=== PATIENT | male | born 2000 | race Hispanic/Latino ===

== ENCOUNTER 2019-05-06 14:03 | Emergency (ER) | payer BC, MEDICAID, OTHER ==
[2019-05-06] MEDS ORDERED: HYDROCODONE/ACETAMINOPHEN 5/325 MG TAB ONE (14:50)
== END 2019-05-06 17:25 | disposition home or self-care (01) ==
LOC: EDH 14:03
DX: S63.502A Unspecified sprain of left wrist, initial encounter (principal); W18.39XA Other fall on same level, initial encounter; Y93.89 Activity, other specified; Y92.89 Other specified places as the place of occurrence of the external cause; Y99.8 Other external cause status; S63.501A Unspecified sprain of right wrist, initial encounter; S23.3XXA Sprain of ligaments of thoracic spine, initial encounter
CPT/HCPCS: 72128; 72131; 73110

== ENCOUNTER 2019-08-22 20:18 | Inpatient (IN) | payer BC, OTHER, SELFPAY ==
[~2019-08-22] VITALS: Ht 167.6 cm; Wt 92.5 kg
[2019-08-22] MEDS ORDERED: IBUPROFEN 800 MG TAB ONE (21:29)
[2019-08-22 21:33] LABS: RAPID GROUP A STREP NEGATIVE (NEGATIVE)
[2019-08-22 21:41] LABS: BASOPHILS % (AUTO) 0.2 % (0.0-5.0); HEMATOCRIT 45.8 % (42-54); LYMPHOCYTES % (AUTO) 20.1 % (21.0-51.0); MEAN CORPUSCULAR HEMOGLOBIN 33.3 pg (27.0-33.0); MEAN CORPUSCULAR VOLUME 92.3 fL (80-100); MONOCYTES % (AUTO) 6.4 % (3.0-13.0); NEUTROPHILS % (AUTO) 73.1 % (40.0-77.0); PLATELET COUNT (AUTO) 173 K/uL (130-400); RED BLOOD CELL COUNT(AUTO) 4.96 MIL/uL (4.50-6.20); RED CELL DISTRIBUTION WIDTH 11.7 % (11.0-15.5); WHITE BLOOD COUNT (AUTO) 5.5 K/uL (4.8-10.8)
[2019-08-22 22:09] LABS: POTASSIUM 3.8 mmol/L (3.5-5.1)
[2019-08-22 22:10] LABS: INR 0.95 (0.85-1.15); PARTIAL THROMBOPLASTIN TIME 30.8 SEC (26.3-35.5); PROTHROMBIN TIME 10.3 SEC (9.6-11.6)
[2019-08-22 22:19] LABS: ALBUMIN 4.1 g/dL (3.5-5.0); TOTAL PROTEIN, SERUM 7.5 g/dL (6.0-8.3); TROPONIN I 0.22 ng/mL (0.00-0.06)
[2019-08-22 22:21] LABS: CREATININE 1.2 mg/dL (0.5-1.5)
[2019-08-22 23:01] LABS: APPEARANCE,URINE Clear (CLEAR); BILIRUBIN,URINE Negative (NEGATIVE); COLOR,URINE Yellow (YELLOW); GLUCOSE, URINE (UA) Negative (NEGATIVE); KETONES,URINE Trace mg/dL (NEGATIVE); LEUKOCYTE ESTERASE ,URINE Negative (NEGATIVE); NITRATE,URINE Negative (NEGATIVE); OCCULT BLOOD,URINE Negative (NEGATIVE); PH,URINE 7.5 (5.0-8.0); PROTEIN,URINE POS 1+ mg/dL (NEGATIVE)
[2019-08-22 23:35] LABS: BACTERIA,URINE None Seen /HPF (None Seen); MUCUS,URINE Few LPF (None Seen); RBC,URINE None Seen /HPF (0-1); SQUAMOUS EPITHELIAL CELL,UR Rare /HPF (0-2); WBC,URINE None Seen /HPF (0-1)
[2019-08-23] MEDS ORDERED: CEFTRIAXONE SODIUM 1 GM ONE (00:06)
[2019-08-23] MEDS ORDERED: AZITHROMYCIN 500MG+NS 250ML 250 ML IV ONE (00:07)
[2019-08-23] MEDS ORDERED: ASPIRIN 325MG EC TAB 325 MG TABLET.DR PO STA (00:50)
[2019-08-23] MEDS ORDERED: ONDANSETRON HCL 4 MG/2 ML VIAL IV PRN (01:00)
[2019-08-23] MEDS: AZITHROMYCIN 500MG+NS 250ML 250 ML IV SCH (01:00)
[2019-08-23] MEDS ORDERED: ACETAMINOPHEN 325 MG TAB PO PRN (01:00)
[2019-08-23] MEDS: CEFTRIAXONE SODIUM 1 GM IV SCH (01:00)
[2019-08-23] MEDS ORDERED: LACTULOSE 20 GM/30 ML UDCUP PO PRN (01:00)
--- NOTE | 2019-08-23 02:15 | NUR ---
PT ARRIVED FROM ER. NO DISTRESS NOTED. RULE OUT FOR COVID. ADMITTED DUE TO COMMUNITY ACQUIRED PNEUMONIA. PT STATES HE HAS HAVING FEVERS FOR THREE DAYS. OTHERWISE NO COUGH, CONGESTION, SOB. ON ROOM AIR. AMBULATORY. AAO3, PERRLA.
[2019-08-23] MEDS: SODIUM CHLORIDE 0.9% 1000ML 1,000 ML IV SCH ×3 (02:40→17:18)
[2019-08-23 02:53] LABS: AMPHET/METH SCREEN,URINE NEGATIVE (NEGATIVE); BARBITURATE SCREEN, URINE NEGATIVE (NEGATIVE); BENZODIAZEPINES SCREEN,URINE NEGATIVE (NEGATIVE); CANNABINOID SCREEN,URINE NEGATIVE (NEGATIVE); COCAINE SCREEN,URINE NEGATIVE (NEGATIVE); OPIATE SCREEN,URINE NEGATIVE (NEGATIVE); PHENCYCLIDINE SCREEN,URINE NEGATIVE (NEGATIVE)
--- NOTE | 2019-08-23 03:10 | NUR ---
PT D-DIMER ELEVATED. REPORTED TO ADAM BAXTER. ORDER TO PE CT PROTOCOL.
[2019-08-23 04:00] VITALS: BP 138/93
[2019-08-23] MEDS ORDERED: IOHEXOL 350 MG/ML 100ML INFUS..BTL IV ONE (04:05)
--- NOTE | 2019-08-23 04:30 | NUR ---
PT TAKEN FOR CT TO RULE OUT PE
[2019-08-23] MEDS: ACETAMINOPHEN 325 MG TAB PO PRN ×2 (04:48→17:18)
--- NOTE | 2019-08-23 05:15 | NUR ---
PT IS COVID-19 NEGATIVE. PER LAB REPORT. PT AWARE. NO DISTRESS NOTED
[2019-08-23 05:22] LABS: BASOPHILS % (AUTO) 0.2 % (0.0-5.0); HEMATOCRIT 41.3 % (42-54); LYMPHOCYTES % (AUTO) 18.6 % (21.0-51.0); MEAN CORPUSCULAR HEMOGLOBIN 32.9 pg (27.0-33.0); MEAN CORPUSCULAR HGB CONC 35.4 g/dL (32.0-36.0); MONOCYTES % (AUTO) 6.5 % (3.0-13.0); NEUTROPHILS % (AUTO) 74.3 % (40.0-77.0); PLATELET COUNT (AUTO) 136 K/uL (130-400); RED BLOOD CELL COUNT(AUTO) 4.44 MIL/uL (4.50-6.20); RED CELL DISTRIBUTION WIDTH 11.7 % (11.0-15.5); WHITE BLOOD COUNT (AUTO) 5.1 K/uL (4.8-10.8)
[2019-08-23 05:37] LABS: CREATININE 1.1 mg/dL (0.5-1.5); POTASSIUM 3.5 mmol/L (3.5-5.1)
[2019-08-23 08:53] VITALS: BP 121/77
[2019-08-23] MEDS: METOPROLOL TARTRATE 25 MG TAB PO SCH ×2 (09:05→21:41)
[2019-08-23] MEDS: ENOXAPARIN SODIUM 40 MG/0.4 ML SYRINGE SQ SCH (09:06)
[2019-08-23] MEDS: ASPIRIN 81MG TAB.CHEW PO SCH (09:06)
[2019-08-23] MEDS: FAMOTIDINE 20MG TAB 20 MG TAB PO SCH ×2 (09:06→21:41)
[2019-08-23 09:47] LABS: TROPONIN I 0.15 ng/mL (0.00-0.06)
[2019-08-23 12:51] VITALS: BP 130/91
[2019-08-23 16:07] VITALS: BP 125/80
--- NOTE | 2019-08-23 16:48 | NUR ---
BRAYDEN PLAN PATIENT IN COVID UNIT PENDING TRANSFER TO OTHER FLOOR. [facility] WILL CONTINUE TO FOLLOW. Addendum: 08/23/19 at 1649 by MARY TREVINO RN CM Amended: Links added.
[2019-08-23 21:30] VITALS: BP 127/91
[2019-08-24] VITALS (7 sets, daily range): BP systolic 111–131; BP diastolic 62–91
[2019-08-24] MEDS: AZITHROMYCIN 500MG+NS 250ML 250 ML IV SCH (00:58)
[2019-08-24] MEDS: CEFTRIAXONE SODIUM 1 GM IV SCH (00:58)
[2019-08-24] MEDS: SODIUM CHLORIDE 0.9% 1000ML 1,000 ML IV SCH ×2 (04:00→17:35)
[2019-08-24 04:32] LABS: BASOPHILS % (AUTO) 0.4 % (0.0-5.0); EOSINOPHILS % (AUTO) 0.2 % (0.0-8.0); HEMATOCRIT 40.9 % (42-54); LYMPHOCYTES % (AUTO) 31.9 % (21.0-51.0); MEAN CORPUSCULAR HEMOGLOBIN 32.7 pg (27.0-33.0); MEAN CORPUSCULAR HGB CONC 35.2 g/dL (32.0-36.0); MONOCYTES % (AUTO) 5.7 % (3.0-13.0); NEUTROPHILS % (AUTO) 61.6 % (40.0-77.0); PLATELET COUNT (AUTO) 145 K/uL (130-400); RED CELL DISTRIBUTION WIDTH 11.7 % (11.0-15.5); WHITE BLOOD COUNT (AUTO) 5.1 K/uL (4.8-10.8)
[2019-08-24 05:29] LABS: ALBUMIN 3.1 g/dL (3.5-5.0); BILIRUBIN,TOTAL 0.9 mg/dL (0.2-1.0); CREATININE 1.2 mg/dL (0.5-1.5); CRP QUANTITATIVE 150.2 mg/L (0.00-9.0); MAGNESIUM 2.3 mg/dL (1.80-2.40); PHOSPHORUS 3.4 mg/dL (2.5-4.9); POTASSIUM 3.2 mmol/L (3.5-5.1); THYROID STIMULATING HORMONE 1.13 uIU/mL (0.36-3.74); TOTAL PROTEIN, SERUM 6.8 g/dL (6.0-8.3)
[2019-08-24 06:01] LABS: ERYTHROCYTE SEDIMENTATION RATE 30 MM/HR (0-15)
[2019-08-24] MEDS ORDERED: POTASSIUM CHLORIDE 10% ELIXIR 20 MEQ/15 ML UDCUP PO PRN (08:00)
[2019-08-24] MEDS ORDERED: POTASSIUM CHLORIDE 20MEQ/100ML 100 ML IV PRN ×2 (08:00)
[2019-08-24] MEDS: FAMOTIDINE 20MG TAB 20 MG TAB PO SCH ×2 (09:25→20:27)
[2019-08-24] MEDS: ASPIRIN 81MG TAB.CHEW PO SCH (09:26)
[2019-08-24] MEDS: ENOXAPARIN SODIUM 40 MG/0.4 ML SYRINGE SQ SCH (09:26)
[2019-08-24] MEDS: METOPROLOL TARTRATE 25 MG TAB PO SCH ×2 (09:27→20:28)
[2019-08-24] MEDS ORDERED: DOXYCYCLINE 100MG+NS 250ML 250 ML IV SCH (11:45)
[2019-08-24] MEDS: DOXYCYCLINE HYCLATE 100 MG TABLET PO SCH ×2 (15:13→20:28)
--- NOTE | 2019-08-24 17:28 | NUR ---
MET W PATIENT FOR DC PLANNING. LIVES W PARENTS, INDEPENDENT, NO DME NO SERVICES- STUDENT, NO CHILDHOOD ASTHMA OR ALLERGIES, PT HAS BREATHING DIFFICULTIES LATELY, STATES HAS BEEN OUTSIDE A LOT. DCP IS HOME, Addendum: 08/24/19 at 1731 by DARIUS THACKER RN CM Amended: Links added.
[2019-08-24] MEDS: POTASSIUM CHLORIDE 20 MEQ ERTAB PO PRN ×3 (18:19→22:05)
[2019-08-25] MEDS: CEFTRIAXONE SODIUM 1 GM IV SCH (00:17)
[2019-08-25] MEDS: POTASSIUM CHLORIDE 20 MEQ ERTAB PO PRN (00:18)
[2019-08-25] MEDS ORDERED: ACETAMINOPHEN 325 MG TAB ONE (00:25)
[2019-08-25] MEDS: ACETAMINOPHEN 325 MG TAB PO PRN (00:28)
[2019-08-25 03:46] VITALS: BP 107/75
[2019-08-25] MEDS: SODIUM CHLORIDE 0.9% 1000ML 1,000 ML IV SCH ×2 (05:20→14:15)
[2019-08-25 05:33] LABS: HEMATOCRIT 38.1 % (42-54); MEAN CORPUSCULAR HEMOGLOBIN 33.3 pg (27.0-33.0); MEAN CORPUSCULAR HGB CONC 35.7 g/dL (32.0-36.0); MEAN CORPUSCULAR VOLUME 93.2 fL (80-100); PLATELET COUNT (AUTO) 167 K/uL (130-400); RED BLOOD CELL COUNT(AUTO) 4.09 MIL/uL (4.50-6.20); RED CELL DISTRIBUTION WIDTH 11.7 % (11.0-15.5); WHITE BLOOD COUNT (AUTO) 5.9 K/uL (4.8-10.8)
[2019-08-25 05:43] LABS: ALBUMIN 2.9 g/dL (3.5-5.0); BILIRUBIN,TOTAL 0.6 mg/dL (0.2-1.0); CREATININE 1.2 mg/dL (0.5-1.5); CRP QUANTITATIVE 104.2 mg/L (0.00-9.0); POTASSIUM 4.5 mmol/L (3.5-5.1); TOTAL PROTEIN, SERUM 6.4 g/dL (6.0-8.3)
[2019-08-25 06:04] LABS: BAND NEUTROPHILS % (MANUAL) 13 % (0-2); BASOPHILS % (MANUAL) 1 % (0-2); LYMPHOCYTES % (MANUAL) 43 % (22-44); MAN.DIFF COMMENT-IMPRESSION MANUAL DIFFERENTIAL; MONOCYTES % (MANUAL) 11 % (2-9); PLATELET MORPHOLOGY COMMENT ADEQUATE; REACTIVE LYMPHOCYTES 2 % (0-0); SEGMENTED NEUTROPHILS % 30 % (40-70)
[2019-08-25 07:54] VITALS: BP 122/79
[2019-08-25] MEDS: FAMOTIDINE 20MG TAB 20 MG TAB PO SCH (08:56)
[2019-08-25] MEDS: ENOXAPARIN SODIUM 40 MG/0.4 ML SYRINGE SQ SCH (08:56)
[2019-08-25] MEDS: ASPIRIN 81MG TAB.CHEW PO SCH (08:56)
[2019-08-25] MEDS: DOXYCYCLINE HYCLATE 100 MG TABLET PO SCH (08:56)
[2019-08-25] MEDS: METOPROLOL TARTRATE 25 MG TAB PO SCH (08:56)
[2019-08-25 11:51] VITALS: BP 111/79
[2019-08-25] MEDS ORDERED: CEFD300C3 PO (12:32)
[2019-08-25] MEDS ORDERED: DOXY100T21 PO (12:32)
--- NOTE | 2019-08-25 14:45 | NUR ---
PT LEFT IN PVT CAR WITH FATHER. PT A/A X 3 WITH NO COMPLICATIONS AND V/S STABLE. RX SCRIPT GIVEN TO PATIENT ALONG WITH D/C INSTRUCTION AND IS TO F/U WITH PCP IN 2 WEEKS.
== END 2019-08-25 14:40 | disposition home or self-care (01) | DRG 871 ==
LOC: EDH 20:18 → EDHIP 20:19 → 2DH 08-23 02:22 → 3AH 08-23 15:56
PROVIDERS: ADMIT Internal Medicine; ATTEND Internal Medicine
DX: A41.9 Sepsis, unspecified organism (principal); J18.9 Pneumonia, unspecified organism; M62.82 Rhabdomyolysis; Z20.828 Contact with and (suspected) exposure to other viral communicable diseases; E66.9 Obesity, unspecified; Z68.32 Body mass index [BMI] 32.0-32.9, adult
CPT/HCPCS: 36415; 71045; 71275; 80048; 80053; 80061; 80305; 81001; 82550; 83605; 83735; 83874; 83880; 84100; 84145; 84443; 84484; 85025; 85378; 85610; 85651; 85730; 86140; 86738; 87040; 87088; 87449; 87486; 87581; 87633; 87635; 87798; 87804; 87880; 93005; 99291; G0378; J0456; J0696; J1650; J3490; J7030; Q9967